=== PATIENT | female | born 1995 | race Asian ===

== ENCOUNTER 2022-08-02 06:55 | Emergency (ER) | payer SELFPAY ==
[2022-08-02 06:59] VITALS: BP 112/72; PULSE 75; RESP 16; TEMP 36.4; O2SAT 99; BMI 21.7
[2022-08-02 07:02] VITALS: O2SAT 96
--- NOTE | 2022-08-02 07:09 | CT_ITS ---
EXAM: CT HEAD WITHOUT INTRAVENOUS CONTRAST CLINICAL INDICATION: headache TECHNIQUE: Multiple axial images were obtained of the head without intravenous contrast. This CT exam was performed using one or more of the following dose reduction techniques: automated exposure control, adjustment of the mA and/or kV according to patient size, and/or use of iterative reconstruction technique. This report was created using [employer] report generation technology. COMPARISON: None. FINDINGS: BRAIN AND EXTRA-AXIAL SPACES: Unremarkable. No intra- or extra-axial hemorrhage. No evidence of acute infarct. No intracranial mass or mass effect. There is preservation of the bautista/white matter interface. Posterior fossa structures are unremarkable. Ventricles are appropriate for age. No hydrocephalus. Basal cisterns are patent. BONES/JOINTS: Unremarkable. No discrete lytic or blastic abnormalities. SINUSES: Unremarkable as visualized. Clear. MASTOID AIR CELLS: Unremarkable. Clear. ORBITS: Visualized globes, extraocular muscles, optic nerves and retrobulbar fat appear unremarkable. CT/Brain/Head without Contrast IMPRESSION: Negative head/brain CT without intravenous contrast. Electronically Signed: Braden Mckeon MD at 7:52 EST ,
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
[2022-08-02] MEDS: Acetaminophen 500 MG Tablet 1000 MG PO (07:47)
[2022-08-02 08:05] VITALS: BP 95/55; PULSE 63; RESP 16; TEMP 36.7; O2SAT 98
== END 2022-08-02 08:08 | disposition home or self-care (01) ==
PROVIDERS: Emergency Provider Student in an Organized Health Care Education/Training Program; Visit Provider Student in an Organized Health Care Education/Training Program
DX: S60.222A Contusion of left hand, initial encounter (principal); S80.12XA Contusion of left lower leg, initial encounter; R51.9 Headache, unspecified; V49.88XA Car occupant (driver) (passenger) injured in other specified transport accidents, initial encounter
CPT/HCPCS: 70450; 71045; 72125; 99283